=== PATIENT | male | born 1940 | race Caucasian/White ===

== ENCOUNTER → 2019-01-24 | Day surgery (SDC) | payer MEDICARE, BC ==
[~2019-01-24] MED LIST: AMLO10TA8 PO; APIX5TAB PO; DRON400T PO; FENO135C PO; IV NORMAL SALINE 1000ML BAG 1,000 ML IV SCH; LOSA100T14 PO; PROPOFOL 100 ML IV ONE
[2019-01-24 13:35] VITALS: BP 155/68
--- NOTE | 2019-01-25 15:06 | PATHOLOGY ---
[facility] Accession Number: [id number] . 01 Material submitted: . PART A: stomach - GASTRIC BIOPSY PART B: esophagus - GE JUNCTION Z-LINE PART C: cecum - CECAL POLYP PART D: cecum - NODULARITY IN CECUM BIOPSY PART E: colon - THICKENED MUCOSA BIOPSY DESCENDING COLON. Modifiers: descending . 01 Clinical history: . Hematochezia . 02 Diagnosis: A. Gastric biopsies: - Congestion and focal mild chronic inflammation. . B. Gastroesophageal junction Z-line biopsies: - Segments of esophagogastric and gastric mucosa showing focal acute and moderate chronic inflammation. . C. Colon biopsy, cecal polyp: - Tubular adenoma. . D. Colon biopsies, cecum nodularity: - No significant pathologic abnormalities. . E. Colon biopsies, thickened mucosa descending colon: - No significant pathologic abnormalities. (JPM:[facility] 01/25/2019) [facility]/01/25/2019 . 02 Comment: Sections of the gastric biopsy reveal segments of gastric antral and gastric body mucosa showing congestion and focal mild chronic inflammation. A properly controlled immunoperoxidase stain for Helicobacter is negative for Helicobacter organisms. . Sections from the gastroesophageal junction Z-line biopsy reveal segments of esophagogastric and gastric mucosa showing focal acute and moderate chronic inflammation. The squamous esophageal mucosa is hyperplastic and consistent with reflux changes. There is no evidence of Mendoza's change, dysplasia, or malignancy. . Sections of the cecal biopsy reveal a tubular adenoma showing no high-grade dysplasia or evidence of malignancy. . Sections of the cecal nodularity biopsy reveal segments of colonic mucosa showing focal mucosal congestion and mild edema. There is no evidence of a chronic destructive colitis, ischemic colitis, lymphocytic colitis, or collagenous colitis. . Sections of the descending colon biopsy reveal segments of colonic mucosa showing focal mild mucosal edema. There is no evidence of a chronic destructive colitis, ischemic colitis, lymphocytic colitis, or collagenous colitis. There are no adenomatous changes or evidence of malignancy. (JPM:[facility] 01/25/2019) . Special stain performed: Immunoperoxidase for Helicobacter on A1. . 02 Electronically signed: . Larry Stewart MD, Pathologist NPI- [id number] . 01 Gross description: . A. Received in formalin labeled "Larry Quinteros, gastric BX, rule out H. pylori," are 3 segments of oates soft tissue measuring 1.0 x 0.9 x 0.3 cm in aggregate dimensions and ranging from 0.3 to 0.5 cm in maximum dimension. The specimen is submitted entirely in cassette A1. . B. Received in formalin labeled "Larry Quinteros, GEJ Z line, rule out Mendoza's," are 3 segments of oates soft tissue measuring 1.0 x 0.6 x 0.2 cm in aggregate dimensions and ranging from 0.3 to 0.4 cm in maximum dimension. The specimen is submitted entirely in cassette B1. . C. Received in formalin labeled "Larry Quinteros, cecal polyp," is a single segment of oates soft tissue measuring 0.8 cm in maximum dimension. The specimen is submitted entirely in cassette C1. . D. Received in formalin labeled "Larry Quinteros, nodularity in cecum BX," are 2 segments of oates soft tissue measuring 1.0 x 0.2 x 0.2 cm in aggregate dimensions and ranging from 0.3 to 0.7 cm in maximum dimension. The specimen is submitted entirely in cassette D1. . E. Received in formalin labeled "Larry Quinteros, thickened mucosa, descending colon BX," are 2 segments of oates soft tissue measuring 0.9 x 0.3 x 0.2 cm in aggregate dimensions and ranging from 0.4 to 0.5 cm in maximum dimension. The specimen is submitted entirely in cassette E1. ([facility]; 01/24/2019) TOB/TOB . 02 Pathologist provided ICD-10: K29.50, K20.8, D12.0, K92.1 . 02 CPT . 206171, 650391, 296198, 128608, [id number], [id number] Specimen Comment: A courtesy copy of this report has been sent to Specimen Comment: [phone], . Specimen Comment: Report sent to / DR FREEMAN Performed at: [address] [facility] [address], [place], [place] [id number] MD Greg Kellogg MD Phone: [phone] Performed at: 02 [facility] [place] [address] [place], [place] [id number] MD Larry Stewart MD Phone: [phone]
== END | disposition home or self-care (01) ==
LOC: ENDOS 09:21
PROVIDERS: ATTEND Internal Medicine
DX: K29.50 Unspecified chronic gastritis without bleeding (principal); K21.0 Gastro-esophageal reflux disease with esophagitis; D12.0 Benign neoplasm of cecum; K57.30 Diverticulosis of large intestine without perforation or abscess without bleeding; K64.8 Other hemorrhoids; E11.22 Type 2 diabetes mellitus with diabetic chronic kidney disease; I12.9 Hypertensive chronic kidney disease with stage 1 through stage 4 chronic kidney disease, or unspecified chronic kidney disease; N18.9 Chronic kidney disease, unspecified; E78.5 Hyperlipidemia, unspecified; I48.91 Unspecified atrial fibrillation; Z79.01 Long term (current) use of anticoagulants; Z98.890 Other specified postprocedural states; Z96.651 Presence of right artificial knee joint; Z72.89 Other problems related to lifestyle; Z72.0 Tobacco use; Z79.84 Long term (current) use of oral hypoglycemic drugs
CPT/HCPCS: 43239; 45380; 45385; 88305; 88342; J2704; 45382